=== PATIENT | male | born 1955 | race Caucasian/White ===

== ENCOUNTER → 2017-01-12 | Outpatient (CLI) | payer BC, OTHER ==
--- NOTE | 2017-01-12 08:08 | CT ---
EXAMINATION TYPE: CT chest w con DATE OF EXAM: 01/12/2017 7:54 AM COMPARISON: NONE HISTORY: COPD CT DLP: 700.9 mGycm Automated exposure control for dose reduction was used. CONTRAST: CT scan of the chest is performed with IV Contrast, patient injected with 100 ml mL of Omnipaque 300. FINDINGS: LUNGS: Mild upper lobe emphysematous changes noted. Hyperinflation compatible with COPD. Calcified pl eural plaque right lung base. No evidence for mass or pulmonary nodule. No evidence for pleural effus ion. Mild parenchymal scarring right upper lobe posteriorly. MEDIASTINUM: There are no greater than 1 cm hilar or mediastinal lymph nodes. No pericardial effusi on is seen. Thoracic aorta is of normal caliber. The heart is not enlarged. UPPER ABDOMEN: No significant abnormality appreciated. OTHER: There is evidence of fatty hepatic infiltration. IMPRESSION: 1. COPD with mild upper lobe emphysematous change. 2. 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
== END | disposition home or self-care (01) ==
LOC: RADCTMAIN 07:20
PROVIDERS: ATTEND Internal Medicine Sleep Medicine
DX: J44.9 Chronic obstructive pulmonary disease, unspecified (principal); J98.4 Other disorders of lung
CPT/HCPCS: 71260; Q9967

== ENCOUNTER 2018-02-09 10:59 | Emergency (ER) | payer BC, OTHER ==
[2018-02-09] MEDS ORDERED: methylPREDNISolone SOD SUCCI 125 MG/2 ML VIAL IV STA (11:31)
[2018-02-09] MEDS ORDERED: LEVOFLOXACIN 750MG-D5W PMX 750 MG in DEXTROSE/WATER 1 150ML.BAG IVPB STA (11:31)
[2018-02-09] MEDS ORDERED: ALBUTEROL NEBULIZED 2.5 MG/3 ML INHALATION STA (11:31)
[2018-02-09] MEDS ORDERED: IPRATROPIUM 0.5 MG/2.5 ML NEBU INHALATION STA (11:31)
--- NOTE | 2018-02-09 11:52 | ED ---
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 He denies any chest pain no pleuritic chest pain no headache no signs of any meningitis no abdominal pain no frequency urgency dysuria no symptoms of TIA or CVA - Related Data Home Medications Medication Instructions Recorded Confirmed Budesonide-Formot 160-4.5 Mcg 2 puff INHALATION BID 04/06/17 02/09/18 [Symbicort 160-4.5 Mcg Inhaler] Montelukast [Singulair] 10 mg PO DAILY 04/06/17 02/09/18 Albuterol Inhaler [Ventolin Hfa 2 puff INHALATION DIRECTED 04/20/17 02/09/18 Inhaler] Allopurinol [Zyloprim] 100 mg PO BID 04/20/17 02/09/18 Hydrochlorothiazide 50 mg PO BID 04/20/17 02/09/18 Ipratropium-Albuterol Nebulize 2 puff INHALATION QID 04/20/17 02/09/18 [Duoneb 0.5 mg-3 mg/3 ml Soln] Potassium Chloride [Klor-Con 10] 10 meq PO DAILY 04/20/17 02/09/18 Tiotropium [place] [Spiriva] 18 mcg INHALATION DIRECTED 04/20/17 02/09/18 Omalizumab [Xolair] 300 mg SQ DIRECTED 07/13/17 02/09/18 Previous Rx's Medication Instructions Recorded Levofloxacin [Levaquin] 750 mg PO DAILY #5 tab 02/09/18 Potassium Chloride [K-Tab ER] 10 meq PO DAILY #10 tablet.er 02/09/18 Allergies Allergy/AdvReac Type Severity Reaction Status Date / Time No Known Allergies Allergy Verified 02/09/18 11:10 Review of Systems ROS Statement: Those systems with pertinent positive or pertinent negative responses have been documented in the HPI. ROS Other: All systems not noted in ROS Statement are negative. Past Medical History Past Medical History: Asthma, COPD, Hypertension Additional Past Medical History / Comment(s): GOUT. History of Any Multi-Drug Resistant Organisms: None Reported Past Surgical History: No Surgical Hx Reported Past Anesthesia/Blood Transfusion Reactions: Unable to Obtain Past Psychological History: No Psychological Hx Reported Smoking Status: Former smoker Past Alcohol Use History: Occasional Past Drug Use History: None Reported General Exam - General Exam Comments Initial Comments: General: The patient is awake and alert, in mild distress, and does not appear acutely ill. Skin: Skin is warm and dry and no rashes or lesions are noted. Eye: Pupils are equal, round and reactive to light, extra-ocular movements are intact; there is normal conjunctiva bilaterally. Ears, nose, mouth and throat: There are moist mucous membranes and no oral lesions. Neck: The neck is supple, there is no tenderness or JVD. Cardiovascular: There is a regular rate and rhythm. No murmur, rub or gallop is appreciated. Respiratory: To auscultation bilateral, crease breath sounds bilateral typical COPD Gastrointestinal: Soft, non-distended, non-tender abdomen without masses or organomegaly noted. There is no rebound or guarding present. Bowel sounds are unremarkable. Back: There is no tenderness to palpation in the midline. There is no obvious deformity. Musculoskeletal: Normal ROM, no tenderness, There is no pedal edema. There is no calf tenderness or swelling. No cords were appreciated. Neurological: CN II-XII intact, Cranial nerves III through XII are intact. There are no obvious motor or sensory deficits. Coordination appears grossly intact. Speech is normal. Psychiatric: Cooperative, appropriate mood & affect, normal judgment. Limitations: no limitations Course Vital Signs 02/09/18 02/09/18 02/09/18 11:05 11:44 11:54 Temperature 100.1 F H Pulse Rate 99 90 92 Respiratory 20 Rate Blood Pressure 127/68 O2 Sat by Pulse 97 Oximetry Patient's labs are reviewed, flu studies are normal potassium is bit low 3.2 chest x-rays consistent with a COPD white count is normal and creatinine is 1.3 to had no previous creatinine to compare with he does have a mild renal insufficiency and plan to refer him to nephrology to keep an eye on his kidney functions and I will put him on now Levaquin 750 mg 1 tablet daily for next 7 days he was in a doxycycline and Bactrim and will discontinue that for cultures are pending x-ray of the foot ruled out any osteomyelitis he also will go home on some potassium chloride 10 mEq by mouth daily for next couple of weeks and he would need to check his potassium diagnosis can be bronchitis due to exacerbation of COPD with some fever and chills Medical Decision Making - Lab Data Result diagrams: 02/09/18 11:54 02/09/18 11:54 Lab Results 02/09/18 02/09/18 02/09/18 Range/Units 11:54 11:54 11:54 WBC 9.7 (3.8-10.6) k/uL RBC 5.03 (4.30-5.90) m/uL Hgb 16.0 (13.0-17.5) gm/dL Hct 45.9 (39.0-53.0) % MCV 91.3 (80.0-100.0) fL MCH 31.8 (25.0-35.0) pg MCHC 34.8 (31.0-37.0) g/dL RDW 12.9 (11.5-15.5) % Plt Count 130 L (150-450) k/uL Neutrophils % 83 % Lymphocytes % 6 % Monocytes % 6 % Eosinophils % 4 % Basophils % 0 % Neutrophils # 8.0 H (1.3-7.7) k/uL Lymphocytes # 0.5 L (1.0-4.8) k/uL Monocytes # 0.6 (0-1.0) k/uL Eosinophils # 0.4 (0-0.7) k/uL Basophils # 0.0 (0-0.2) k/uL PT 11.4 (9.0-12.0) sec INR 1.2 H (<1.2) APTT 23.8 (22.0-30.0) sec Sodium 134 L (137-145) mmol/L Potassium 3.2 L (3.5-5.1) mmol/L Chloride 96 L (98-107) mmol/L Carbon Dioxide 28 (22-30) mmol/L Anion Gap 10 mmol/L BUN 24 H (9-20) mg/dL Creatinine 1.32 H (0.66-1.25) mg/dL Est GFR (CKD-EPI)AfAm 66 (>60 ml/min/1.73 sqM) Est GFR (CKD-EPI)NonAf 57 (>60 ml/min/1.73 sqM) Glucose 110 H (74-99) mg/dL Calcium 8.7 (8.4-10.2) mg/dL Total Bilirubin 0.7 (0.2-1.3) mg/dL AST 89 H (17-59) U/L ALT 102 H (21-72) U/L Alkaline Phosphatase 69 (38-126) U/L Total Protein 6.0 L (6.3-8.2) g/dL Albumin 3.6 (3.5-5.0) g/dL Influenza Type A RNA (Not Detectd) Influenza Type B (PCR) (Not Detectd) 02/09/18 Range/Units 11:54 WBC (3.8-10.6) k/uL RBC (4.30-5.90) m/uL Hgb (13.0-17.5) gm/dL Hct (39.0-53.0) % MCV (80.0-100.0) fL MCH (25.0-35.0) pg MCHC (31.0-37.0) g/dL RDW (11.5-15.5) % Plt Count (150-450) k/uL Neutrophils % % Lymphocytes % % Monocytes % % Eosinophils % % Basophils % % Neutrophils # (1.3-7.7) k/uL Lymphocytes # (1.0-4.8) k/uL Monocytes # (0-1.0) k/uL Eosinophils # (0-0.7) k/uL Basophils # (0-0.2) k/uL PT (9.0-12.0) sec INR (<1.2) APTT (22.0-30.0) sec Sodium (137-145) mmol/L Potassium (3.5-5.1) mmol/L Chloride (98-107) mmol/L Carbon Dioxide (22-30) mmol/L Anion Gap mmol/L BUN (9-20) mg/dL Creatinine (0.66-1.25) mg/dL Est GFR (CKD-EPI)AfAm (>60 ml/min/1.73 sqM) Est GFR (CKD-EPI)NonAf (>60 ml/min/1.73 sqM) Glucose (74-99) mg/dL Calcium (8.4-10.2) mg/dL Total Bilirubin (0.2-1.3) mg/dL AST (17-59) U/L ALT (21-72) U/L Alkaline Phosphatase (38-126) U/L Total Protein (6.3-8.2) g/dL Albumin (3.5-5.0) g/dL Influenza Type A RNA Not Detected (Not Detectd) Influenza Type B (PCR) Not Detected (Not Detectd) Disposition Clinical Impression: Acute exacerbation of COPD with asthma, Chronic foot ulcer, Renal insufficiency Disposition: HOME SELF-CARE Condition: Good Instructions: Upper Respiratory Infection (ED) Prescriptions: Levofloxacin [Levaquin] 750 mg PO DAILY #5 tab Potassium Chloride [K-Tab ER] 10 meq PO DAILY #10 tablet.er Is patient prescribed a controlled substance at d/c from ED?: No If prescribed controlled substance>3 days was MAPS reviewed?: No When asked, does pt state using other controlled substances?: No Referrals: Darrius Elizabeth MD [Primary Care Provider] - 1-2 days Liyah Garcia MD [STAFF PHYSICIAN] - 1-2 days Dawn Chan MD [STAFF PHYSICIAN] - 1-2 days
[2018-02-09 12:06] LABS: Basophils % (A) 0 %; Eosinophils # (A) 0.4 k/uL (0-0.7); Eosinophils % (A) 4 %; HCT 45.9 % (39.0-53.0); Lymphocytes # (A) 0.5 k/uL (1.0-4.8); Lymphocytes % (A) 6 %; MCH 31.8 pg (25.0-35.0); MCHC 34.8 g/dL (31.0-37.0); MCV 91.3 fL (80.0-100.0); Mean Platelet Volume 7.5; Monocytes # (A) 0.6 k/uL (0-1.0); Monocytes % (A) 6 %; Neutrophils % (A) 83 %; Platelet Count 130 k/uL (150-450); RBC 5.03 m/uL (4.30-5.90); RDW 12.9 % (11.5-15.5); WBC 9.7 k/uL (3.8-10.6)
[2018-02-09 12:16] LABS: INR 1.2 (<1.2); Partial Thromboplastin Time 23.8 sec (22.0-30.0); Prothrombin Time 11.4 sec (9.0-12.0)
[2018-02-09 12:18] LABS: Albumin 3.6 g/dL (3.5-5.0); Calcium 8.7 mg/dL (8.4-10.2); Potassium 3.2 mmol/L (3.5-5.1); Total Bilirubin 0.7 mg/dL (0.2-1.3)
--- NOTE | 2018-02-09 12:20 | XR ---
EXAMINATION TYPE: XR chest 2V DATE OF EXAM: 02/09/2018 HISTORY: difficulty breathing. REFERENCE: NONE. FINDINGS: Lung volumes are prominent. The lungs are clear. Pleural spaces are clear. The heart is not enlarged. IMPRESSION: COPD.
--- NOTE | 2018-02-09 12:20 | XR ---
EXAMINATION TYPE: XR foot complete LT , 3 VIEWS DATE OF EXAM ORDERED: 02/09/2018 HISTORY: Enlarging first MTP joint. COMPARISON: None. FINDINGS: There are degenerative changes within the first MTP joint. 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 No acute fracture or dislocation is seen. No bony dest ructive lesion is seen. There is a plantar calcaneal spur. IMPRESSION: 1. NO ACUTE OSSEOUS LESION. 2. DEGENERATIVE CHANGE.
[2018-02-09 12:40] LABS: Troponin I 0.023 ng/mL (0.000-0.034)
[2018-02-09 13:17] VITALS: BP 115/58; PULSE 85; RESP 16; TEMP 99
== END 2018-02-09 13:16 | disposition home or self-care (01) ==
LOC: EC 10:59
DX: J44.1 Chronic obstructive pulmonary disease with (acute) exacerbation (principal); J45.901 Unspecified asthma with (acute) exacerbation; L97.509 Non-pressure chronic ulcer of other part of unspecified foot with unspecified severity; N28.9 Disorder of kidney and ureter, unspecified; I10 Essential (primary) hypertension; M10.9 Gout, unspecified; Z87.891 Personal history of nicotine dependence; Z79.51 Long term (current) use of inhaled steroids; Z79.899 Other long term (current) drug therapy
CPT/HCPCS: 99284; 96365; 96375; 36415; 94640; 93005; 83880; 80053; 82550; 82553; 84484; 85025; 85610; 85730; 87040; 87070; 87205; 87502; 73630; 71046; J2930; J1956

== ENCOUNTER → 2019-07-24 | Outpatient (CLI) | payer BC, OTHER ==
--- NOTE | 2019-07-24 16:40 | CT ---
EXAMINATION TYPE: CT urogram wo/w con DATE OF EXAM: 07/24/2019 COMPARISON: None INDICATION: Positive UA for blood/microscopic hematuria. Pt not c/o any other issues DLP: 4035 mGycm, Automated exposure control for dose reduction was used. CONTRAST: 100 mL of Isovue 300. Study performed TECHNIQUE: Axial images were obtained from above the diaphragm to the pubic rami in the axial plane a t 5 mm thick sections. Reconstructed images are reviewed on the computer in the coronal plane. FINDINGS: Limited CT sections are obtained the lung bases. The lung bases are clear. There is some calcificat ion along the right diaphragm. CT ABDOMEN: Liver: There is moderate fatty infiltration of the liver. Spleen: Normal Pancreas: Normal Adrenal glands: The adrenal glands are normal. Gallbladder: Normal Kidneys: No masses are evident. No hydronephrosis is present. No cysts are present. Delayed images were obtained through the kidneys, which remain unremarkable. Three-D reconstructed images are performed by the technologist on a separate computer. Medial calyces infundibula and renal pelves appear normal. Ureters follow a normal caliber course and contour to th e urinary bladder. Urinary bladder appears unremarkable Aorta: Vascular calcification is within the aorta. Inferior vena cava: Normal. CT PELVIS: Loops of bowel within the abdomen and pelvis are normal. Studies performed without oral contrast limiting bowel evaluation. Appendix: Normal as visualized. Urinary bladder: Normal. Genitourinary structures: Prostate is unremarkable. Osseous structures: No suspicious lytic or sclerotic lesions. IMPRESSIONS: 1. Normal CT urogram.
== END ==
LOC: RADCTMAIN 14:20
PROVIDERS: ATTEND Urology
DX: R31.1 Benign essential microscopic hematuria (principal)
CPT/HCPCS: 74178; 74400; Q9967

== ENCOUNTER → 2019-11-01 | Outpatient (CLI) | payer MEDICARE, BC, OTHER ==
--- NOTE | 2019-11-03 10:54 | PE ---
EXAMINATION TYPE: PET CT fusion skull to thigh DATE OF EXAM: 11/01/2019 COMPARISON: CT urogram July 24, 2019. CT chest January 12, 2017. Outside CTA coronary arteries repor t July 19, 2019 HISTORY: Solitary pulmonary nodule TECHNIQUE: Following the intravenous administration of 10.15 mCi of F-18 FDG, whole body images are performed from the skull base to the midthigh. Images are reviewed on the computer in the coronal, a xial, and sagittal planes. Reconstructed rotating images are created on independent workstation and reviewed on the computer. A localization and attenuation correction CT is performed in conjunction with the PET scan. SCAN: Initial Scan FINDINGS: SKULL BASE AND NECK: No areas of suspicious hypermetabolic uptake. CHEST, MEDIASTINUM, AND HILAR REGION: Background mild to moderate underlying emphysematous change. Re demonstration of calcified pleural plaque right lung base. There is persistent linear scarring latera lly in the left lung base perhaps slightly thickened but not significantly changed from 2017 CT. No s uspicious hypermetabolic uptake in the thorax with particular attention to the left lung base at area of concern on outside report. ABDOMEN AND PELVIS: No areas of suspicious hypermetabolic uptake. OSSEOUS STRUCTURES: No areas of suspicious hypermetabolic uptake. Mild uptake near the level of left greater trochanter is presumed product of a trochanteric bursitis. Old avulsion type fracture suspect ed at this level. OTHER CT: Trace pericardial effusion anterior-inferior aspect. Prominent symmetric bilateral gynecoma stia. Marked fatty infiltration of liver redemonstrated. Bladder poorly distended with abnormal mild to mod erate wall thickening anteriorly measuring up to 14 mm in thickness axial image 217, correlate clinic ally to rule out cystitis. Prostate gland appears normal in size. The bladder appeared within normal limits on the recent CT urogram. Some facet arthropathy lower lumbar spine. IMPRESSION: No suspicious hypermetabolic uptake with particular attention to left lung base at area o f concern on recent CTA coronary study.
== END | disposition home or self-care (01) ==
LOC: RADPETMAIN 07:26
PROVIDERS: ATTEND Internal Medicine Sleep Medicine
DX: R91.1 Solitary pulmonary nodule (principal)
CPT/HCPCS: 78815; A9552

== ENCOUNTER 2020-04-16 09:07 | Day surgery (SDC) | payer MEDICARE, OTHER ==
[2020-04-13 16:05] VITALS: BMI 37.4
[~2020-04-16 09:07] MED LIST: LIDOCAINE 1% (10MG/ML) FOR IV START INTRADERMA PRN
[2020-04-16 09:49] VITALS: RESP 20; TEMP 99.3
[2020-04-16 09:57] LABS: Glucose,Whole Blood 103 mg/dL (75-99)
[2020-04-16] MEDS: LACTATED RINGERS 1,000 ML IV SCH ×2 (09:57→10:00)
[2020-04-16] MEDS ORDERED: PROPOFOL 10 MG/ML 20 ML VIAL IV ONE (10:05)
[2020-04-16] MEDS ORDERED: LIDOCAINE 1% INJ 10MG/ML (20 ML MDV) ONE (10:05)
--- NOTE | 2020-04-16 10:21 | P.PCN ---
Date of Procedure: 04/16/20 Procedure(s) Performed: BRIEF HISTORY: Patient is a 64-year-old pleasant male scheduled for an elective colonoscopy as a part of screening for colorectal neoplasia PROCEDURE PERFORMED: Colonoscopy with snare polypectomy. PREOPERATIVE DIAGNOSIS: Screening for colon cancer. IV sedation per Anesthesia. PROCEDURE: After informed consent was obtained, the patient, was brought into the endoscopy unit. IV sedation was administered by Anesthesia under continuous monitoring. Digital rectal examination was normal. Initially the Olympus CF-160 flexible video colonoscope was then inserted in the rectum, gradually advanced into the cecum without any difficulty. Careful examination was performed as the scope was gradually being withdrawn. Ileocecal valve and the appendiceal orifice were visualized and appeared normal. Prep was excellent. Mucosa of the cecum had a 5 mm sessile polyp removed by snare polypectomy. Rest of the, ascending colon, transverse colon, appeared normal. In the descending colon there was a 4 mm, 5 mm and 7 mm polyp all of which were removed by snare polypectomy. In the proximal rectum there was a 5 mm sessile polyp removed by snare polypectomy. Rest of the descending colon, sigmoid colon, and rectum appeared normal. Retroflexion was performed in the rectum and no lesions were seen. The patient tolerated the procedure well. IMPRESSION: 5 mm cecal polyp status post polypectomy 4 mm, 7 mm and 5 mm descending colon polyp status post polypectomy 5 mm sessile rectal polyp status post snare polyp. RECOMMENDATIONS: Findings of this examination were discussed with the patient as well as his family. He was advised to follow with the biopsy results. If the biopsy shows an adenoma he can have a repeat colonoscopy in 3 years.
[2020-04-16 10:58] VITALS: BP 119/61; PULSE 77
== END 2020-04-16 11:14 | disposition home or self-care (01) ==
LOC: ORWHC2ENDO 09:07
PROVIDERS: ATTEND Internal Medicine Gastroenterology
DX: Z12.11 Encounter for screening for malignant neoplasm of colon (principal); D12.4 Benign neoplasm of descending colon; D12.0 Benign neoplasm of cecum; K62.1 Rectal polyp; Z79.899 Other long term (current) drug therapy; I10 Essential (primary) hypertension; J44.9 Chronic obstructive pulmonary disease, unspecified; G47.33 Obstructive sleep apnea (adult) (pediatric); Z99.89 Dependence on other enabling machines and devices; M10.9 Gout, unspecified; Z79.51 Long term (current) use of inhaled steroids
CPT/HCPCS: 88305; 45385; J2001; J2704

== ENCOUNTER 2022-02-05 12:16 | Emergency (ER) | payer MEDICARE, OTHER ==
[2022-02-05 12:20] VITALS: TEMP 99.2
[2022-02-05] MEDS ORDERED: IPRATROPIUM-ALBUTEROL 3 ML NEB INHALATION STA ×2 (13:12→14:40)
[2022-02-05] MEDS ORDERED: methylPREDNISolone SOD SUCCI 125 MG/2 ML VIAL IV STA (13:12)
[2022-02-05 13:40] VITALS: RESP 18
[2022-02-05 13:44] LABS: Albumin 3.7 g/dL (3.5-5.0); Calcium 8.5 mg/dL (8.4-10.2); Potassium 4.3 mmol/L (3.5-5.1); Total Bilirubin 1.1 mg/dL (0.2-1.3); Total Protein 6.6 g/dL (6.3-8.2)
[2022-02-05 13:52] LABS: Basophils # (A) 0.1 k/uL (0-0.2); Basophils % (A) 0 %; Eosinophils # (A) 0.1 k/uL (0-0.7); Eosinophils % (A) 1 %; HCT 44.7 % (39.0-53.0); HGB 14.9 gm/dL (13.0-17.5); Lymphocytes # (A) 0.3 k/uL (1.0-4.8); Lymphocytes % (A) 2 %; MCH 32.9 pg (25.0-35.0); MCHC 33.3 g/dL (31.0-37.0); MCV 98.7 fL (80.0-100.0); Mean Platelet Volume 7.5; Monocytes # (A) 0.9 k/uL (0-1.0); Monocytes % (A) 7 %; Neutrophils # (A) 10.9 k/uL (1.3-7.7); Neutrophils % (A) 89 %; Platelet Count 187 k/uL (150-450); RBC 4.53 m/uL (4.30-5.90); RDW 13.9 % (11.5-15.5); WBC 12.2 k/uL (3.8-10.6)
[2022-02-05 14:14] LABS: Partial Thromboplastin Time 24.4 sec (22.0-30.0); Prothrombin Time 11.2 sec (9.0-12.0)
--- NOTE | 2022-02-05 14:39 | XR ---
EXAMINATION TYPE: XR chest 2V DATE OF EXAM: 02/05/2022 COMPARISON: 12/19/2021 HISTORY: Short of breath TECHNIQUE: 2 views FINDINGS: Heart is normal. Lungs are clear. Diaphragm is normal. Bony thorax is intact. IMPRESSION: Normal chest. No change.
[2022-02-05] MEDS ORDERED: ALBUTEROL HFA INHALER INHALATION STA (14:46)
--- NOTE | 2022-02-05 14:51 | ED ---
General Adult HPI - General Chief complaint: Shortness of Breath Stated complaint: Covid+ Time Seen by Provider: 02/05/22 13:00 Source: patient, RN notes reviewed, old records reviewed Mode of arrival: ambulatory Limitations: no limitations - History of Present Illness Initial comments: She is a 66-year-old male with past medical history remarkable for chronic hypoxic respiratory failure on 3-4 L nasal cannula at home, COPD, hypertension, sleep apnea, asthma who presents emergency Department complaining of Covid testing. States his had Covid last week. Began having symptoms 3 or 4 days ago. There is some primarily as worsening shortness of breath which got worse yesterday and today. Intensity is his home breathing treatments with minimal success. Presents today for further evaluation. Patient does have a history of heart failure but denies any worsening lower extremity edema. No history of blood clots. Not on blood thinners. Denies nausea, vomiting, abdominal pain. Denies weakness, numbness, headaches. Patient was vaccinated for COVID-19. Received a flu vaccine as well. Took a home Covid test was positive. - Related Data Home Medications Medication Instructions Recorded Confirmed Budesonide-Formot 160-4.5 Mcg 2 puff INHALATION BID 04/06/17 04/16/20 [Symbicort 160-4.5 Mcg Inhaler] Montelukast [Singulair] 10 mg PO DAILY 04/06/17 04/16/20 Albuterol Inhaler (Mhu) [Ventolin 2 puff INHALATION DIRECTED PRN 04/20/17 04/16/20 Hfa Inhaler] Potassium Chloride [Klor-Con 10 ER] 10 meq PO HS 04/20/17 04/16/20 Tiotropium Funk [Spiriva] 18 mcg INHALATION DAILY 04/20/17 04/16/20 allopurinoL [Zyloprim] 200 mg PO DAILY 04/20/17 04/16/20 Potassium Chloride [K-Tab ER] 20 meq PO QAM 02/15/18 04/16/20 Calcium Carbonate [Calcium] 1 dose PO DAILY 04/13/20 04/16/20 Furosemide [Lasix] 20 mg PO DAILY 04/13/20 04/16/20 Ipratropium-Albuterol Nebulize 1 neb INHALATION QID 04/13/20 04/16/20 [Duoneb 0.5 mg-3 mg/3 ml Soln] Spironolactone [Aldactone] 25 mg PO DAILY 04/13/20 04/16/20 guaiFENesin [Mucinex] 1,200 mg PO DAILY 04/13/20 04/16/20 predniSONE 5 mg PO DAILY 04/13/20 04/16/20 Previous Rx's Medication Instructions Recorded Dexamethasone [Decadron] 6 mg PO DAILY 5 Days #5 tablet 02/05/22 Allergies Allergy/AdvReac Type Severity Reaction Status Date / Time sulfamethoxazole Allergy Rash/Hives Verified 02/05/22 12:21 [From Bactrim] trimethoprim [From Bactrim] Allergy Rash/Hives Verified 02/05/22 12:21 Review of Systems ROS Statement: Those systems with pertinent positive or pertinent negative responses have been documented in the HPI. Review of Systems: CONST: Denies fever EYES: Denies blurry vision ENT: Endorses nasal congestion C/V: Denies Chest pain RESP: Endorses shortness of breath, cough, wheezing GI: Denies abdominal pain : Denies dysuria SKIN: Denies rash. MSK: Denies joint pain. NEURO: Denies headache ROS Other: All systems not noted in ROS Statement are negative. Past Medical History Past Medical History: Asthma, COPD, Hypertension, Sleep Apnea/CPAP/BIPAP Additional Past Medical History / Comment(s): hx gout, c-pap machine with oxygen at 2 liters at night., thin skin and bruises easily. History of Any Multi-Drug Resistant Organisms: None Reported Past Surgical History: No Surgical Hx Reported Additional Past Surgical History / Comment(s): colonoscopy Past Anesthesia/Blood Transfusion Reactions: No Reported Reaction Additional Past Anesthesia/Blood Transfusion Reaction / Comment(s): patient concerned about anesthesia due to copd Past Psychological History: No Psychological Hx Reported Smoking Status: Former smoker Past Alcohol Use History: Daily Past Drug Use History: None Reported - Past Family History Mother Family Medical History: No Reported History General Exam - General Exam Comments Initial Comments: General: Appears in no acute distress. HEAD: Normal with no signs of head trauma. EYES: PERRLA, EOMI, conjunctiva normal, no discharge. ENT: Hearing grossly intact, normal oropharynx. RESPIRATORY: Bilateral end expiratory wheezing. No real increased work of breathing. On home 3 L nasal cannula and saturating between 94 and 96%. C/V: Mildly tachycardic. Mild peripheral edema. S1 and S2 auscultated. Per ipheral pulses 2+ intact throughout. ABD: Abd is soft, nontender, nondistended EXT: Normal range of motion, no obvious deformity SKIN: No rashes or lesions observed on exposed skin. NEURO: Alert and oriented 4. Limitations: no limitations Course Vital Signs 02/05/22 02/05/22 02/05/22 12:17 12:59 13:37 Temperature 99.2 F Pulse Rate 109 H 91 Respiratory 24 22 18 Rate Blood Pressure 159/76 O2 Sat by Pulse 94 L Oximetry 02/05/22 13:45 Temperature Pulse Rate 90 Respiratory 18 Rate Blood Pressure O2 Sat by Pulse Oximetry Medical Decision Making - Medical Decision Making Based on patient's presentation and physical exam, I'm concerned for COVID-19 infection. Cannot rule out other etiology for his current symptoms. Appears to be having a mild COPD exacerbation as well. He is not requiring extra oxyg enation, and is using his normal home levels. However we will obtain a cardiac workup in addition to viral swabs, chest x-ray, EKG. He was in agreement this plan. He will be given IV steroids as well as breathing treatments. studies were remarkable for a mild leukocytosis of 12.2. Patient's troponin is undetected. BNP is 147 and normal. Creatinine is chronically elevated and at baseline at 1.33. Patient is Covid positive. Mild hyponatremia of 132. Chest x-ray reveals no change, however there is bilateral patchiness which is chronic and appears compared to prior chest x-ray. On reevaluation, patient is feeling improved. Wheezing is improved. I did recommend that he receive medical and like therapy and he consented. I will provide him with home steroids as well, Decadron 6 mg daily for the next 5 days. He can continue using his home albuterol and inhalers. He already has a pulse ox at home. We discussed quarantine. He was in agreement this plan. Patient tolerated therapy well. Patient's vital signs remained within normal limits stable throughout his stay. I will provide the patient with a prescription for Decadron 6 mg daily for 5 days. I instructed the patient to follow up with their PCP in the next 3 days. I explained that the patient should return to the emergency department if they experience any worsening symptoms. Strict return precautions were discussed with the patient. The patient expressed understanding of these instructions. I an swered all questions that the patient had. The patient was discharged home in good condition with their prescriptions and follow up information. - Lab Data Result diagrams: 02/05/22 12:41 02/05/22 12:41 Lab Results 02/05/22 02/05/22 02/05/22 Range/Units 12:41 12:41 12:41 WBC 12.2 H (3.8-10.6) k/uL RBC 4.53 (4.30-5.90) m/uL Hgb 14.9 (13.0-17.5) gm/dL Hct 44.7 (39.0-53.0) % MCV 98.7 (80.0-100.0) fL MCH 32.9 (25.0-35.0) pg MCHC 33.3 (31.0-37.0) g/dL RDW 13.9 (11.5-15.5) % Plt Count 187 (150-450) k/uL MPV 7.5 Neutrophils % 89 % Lymphocytes % 2 % Monocytes % 7 % Eosinophils % 1 % Basophils % 0 % Neutrophils # 10.9 H (1.3-7.7) k/uL Lymphocytes # 0.3 L (1.0-4.8) k/uL Monocytes # 0.9 (0-1.0) k/uL Eosinophils # 0.1 (0-0.7) k/uL Basophils # 0.1 (0-0.2) k/uL PT (9.0-12.0) sec INR (<1.2) APTT (22.0-30.0) sec Sodium 132 L (137-145) mmol/L Potassium 4.3 (3.5-5.1) mmol/L Chloride 101 (98-107) mmol/L Carbon Dioxide 25 (22-30) mmol/L Anion Gap 6 mmol/L BUN 18 (9-20) mg/dL Creatinine 1.33 H (0.66-1.25) mg/dL Est GFR (CKD-EPI)AfAm 64 (>60 ml/min/1.73 sqM) Est GFR (CKD-EPI)NonAf 55 (>60 ml/min/1.73 sqM) Glucose 99 (74-99) mg/dL Calcium 8.5 (8.4-10.2) mg/dL Total Bilirubin 1.1 (0.2-1.3) mg/dL AST 51 (17-59) U/L ALT 31 (4-49) U/L Alkaline Phosphatase 54 (38-126) U/L Troponin I <0.012 (0.000-0.034) ng/mL NT-Pro-B Natriuret Pep pg/mL Total Protein 6.6 (6.3-8.2) g/dL Albumin 3.7 (3.5-5.0) g/dL Coronavirus (PCR) (Not Detectd) Influenza Type A RNA (Not Detectd) Influenza Type B (PCR) (Not Detectd) 02/05/22 02/05/22 02/05/22 Range/Units 12:41 13:18 13:18 WBC (3.8-10.6) k/uL RBC (4.30-5.90) m/uL Hgb (13.0-17.5) gm/dL Hct (39.0-53.0) % MCV (80.0-100.0) fL MCH (25.0-35.0) pg MCHC (31.0-37.0) g/dL RDW (11.5-15.5) % Plt Count (150-450) k/uL MPV Neutrophils % % Lymphocytes % % Monocytes % % Eosinophils % % Basophils % % Neutrophils # (1.3-7.7) k/uL Lymphocytes # (1.0-4.8) k/uL Monocytes # (0-1.0) k/uL Eosinophils # (0-0.7) k/uL Basophils # (0-0.2) k/uL PT (9.0-12.0) sec INR (<1.2) APTT (22.0-30.0) sec Sodium (137-145) mmol/L Potassium (3.5-5.1) mmol/L Chloride (98-107) mmol/L Carbon Dioxide (22-30) mmol/L Anion Gap mmol/L BUN (9-20) mg/dL Creatinine (0.66-1.25) mg/dL Est GFR (CKD-EPI)AfAm (>60 ml/min/1.73 sqM) Est GFR (CKD-EPI)NonAf (>60 ml/min/1.73 sqM) Glucose (74-99) mg/dL Calcium (8.4-10.2) mg/dL Total Bilirubin (0.2-1.3) mg/dL AST (17-59) U/L ALT (4-49) U/L Alkaline Phosphatase (38-126) U/L Troponin I (0.000-0.034) ng/mL NT-Pro-B Natriuret Pep 147 pg/mL Total Protein (6.3-8.2) g/dL Albumin (3.5-5.0) g/dL Coronavirus (PCR) Detected A (Not Detectd) Influenza Type A RNA Not Detected (Not Detectd) Influenza Type B (PCR) Not Detected (Not Detectd) 02/05/22 Range/Units 13:51 WBC (3.8-10.6) k/uL RBC (4.30-5.90) m/uL Hgb (13.0-17.5) gm/dL Hct (39.0-53.0) % MCV (80.0-100.0) fL MCH (25.0-35.0) pg MCHC (31.0-37.0) g/dL RDW (11.5-15.5) % Plt Count (150-450) k/uL MPV Neutrophils % % Lymphocytes % % Monocytes % % Eosinophils % % Basophils % % Neutrophils # (1.3-7.7) k/uL Lymphocytes # (1.0-4.8) k/uL Monocytes # (0-1.0) k/uL Eosinophils # (0-0.7) k/uL Basophils # (0-0.2) k/uL PT 11.2 (9.0-12.0) sec INR 1.0 (<1.2) APTT 24.4 (22.0-30.0) sec Sodium (137-145) mmol/L Potassium (3.5-5.1) mmol/L Chloride (98-107) mmol/L Carbon Dioxide (22-30) mmol/L Anion Gap mmol/L BUN (9-20) mg/dL Creatinine (0.66-1.25) mg/dL Est GFR (CKD-EPI)AfAm (>60 ml/min/1.73 sqM) Est GFR (CKD-EPI)NonAf (>60 ml/min/1.73 sqM) Glucose (74-99) mg/dL Calcium (8.4-10.2) mg/dL Total Bilirubin (0.2-1.3) mg/dL AST (17-59) U/L ALT (4-49) U/L Alkaline Phosphatase (38-126) U/L Troponin I (0.000-0.034) ng/mL NT-Pro-B Natriuret Pep pg/mL Total Protein (6.3-8.2) g/dL Albumin (3.5-5.0) g/dL Coronavirus (PCR) (Not Detectd) Influenza Type A RNA (Not Detectd) Influenza Type B (PCR) (Not Detectd) - EKG Data -: EKG Interpreted by Me EKG Comments: 12-lead Electrocardiogram Interpretation Note EKG was reviewed and interpreted by myself. 12-lead ECG performed at 1231 is interpreted by me as revealing normal sinus rhythm at a rate of 101 beats per minute. Equality is normal. NV interval 144 ms, QRS duration is 89 ms, QTc is 372 ms.. There were no ST or T wave abnormalities to suggest myocardial ischemia or injury. R wave progression across the precordium was satisfactory. By my interpretation this EKG is non-diagnostic for acute ischemia. Disposition Clinical Impression: COVID-19 virus infection, COPD exacerbation Disposition: HOME SELF-CARE Condition: Good Instructions (If sedation given, give patient instructions): COVID-19 (Coronavirus Disease 2019) (ED) Prescriptions: Dexamethasone [Decadron] 6 mg PO DAILY 5 Days #5 tablet Is patient prescribed a controlled substance at d/c from ED?: No Referrals: Darrius Elizabeth MD [Primary Care Provider] - 1-2 days Time of Disposition: 14:45
[2022-02-05] MEDS ORDERED: BEBTELOVIMAB (EUA) 175 MG/2 ML VIAL IV ONE (15:00)
[2022-02-05 16:06] VITALS: BP 124/65; PULSE 85
== END 2022-02-05 16:36 | disposition home or self-care (01) ==
LOC: EC 12:16
DX: U07.1 COVID-19 (principal); J44.1 Chronic obstructive pulmonary disease with (acute) exacerbation; I11.0 Hypertensive heart disease with heart failure; I50.9 Heart failure, unspecified; M10.9 Gout, unspecified; Z79.51 Long term (current) use of inhaled steroids; Z79.52 Long term (current) use of systemic steroids; Z79.899 Other long term (current) drug therapy; Z87.891 Personal history of nicotine dependence; Z88.1 Allergy status to other antibiotic agents; Z88.2 Allergy status to sulfonamides
CPT/HCPCS: 36415; 94640; 83880; 80053; 84484; 85025; 85610; 85730; 87502; 87635; 71046; 99285; 96374; J2930; Q0222

== ENCOUNTER → 2022-12-13 | Outpatient (CLI) | payer MEDICARE, OTHER ==
--- NOTE | 2022-12-13 11:46 | CT ---
EXAMINATION TYPE: CT chest w con DATE OF EXAM: 12/13/2022 COMPARISON: 01/12/2017 HISTORY: Hemopytsis. CT DLP: 814 mGycm Automated exposure control for dose reduction was used. TECHNIQUE: CT scan of the chest is performed with IV Contrast, patient injected with 70ml mL of Isovue 300. MIP Images are created on CT scanner and reviewed. 3D reconstructed images are created on an independent workstation and reviewed. FINDINGS: LUNGS: Centrilobular mild emphysematous changes noted. Hyperinflation compatible with COPD. Calcified pleural plaque right lung base. No evidence for mass or pulmonary nodule. No evidence for pleural ef fusion. Mild parenchymal scarring right upper lobe posteriorly. Pleural calcifications are seen along the diaphragmatic surface of the right lung stable correlate for his best is related disease. MEDIASTINUM: There are no greater than 1 cm hilar or mediastinal lymph nodes. No pericardial effusi on is seen. Atherosclerotic changes of aorta and calcification in the region of the aortic valve. Ao rta normal caliber. Heart size normal. OTHER: Hypertrophic and degenerative changes of the spine are noted. Scoliotic curvature. There is a hyperdense lesion seen in the dome of the liver measuring 1.6 cm. Low attenuation seen throughout th e liver suggestive of hepatic steatosis. IMPRESSION: 1. COPD with no evidence of pulmonary sizable mass or focal pneumonia. 2. There is a 1.6 cm hepatic dome lesion which is hyperdense could represent a flash hemangioma. Othe r etiologies not excluded. Not seen with certainty on prior exam. Recommend follow-up ultrasound for further evaluation. 3. Pleural-based calcification correlates present best is related disease. 4. Hepatic ptosis
== END | disposition home or self-care (01) ==
LOC: RADCTMAIN 10:18
PROVIDERS: ATTEND Internal Medicine Sleep Medicine
DX: J44.9 Chronic obstructive pulmonary disease, unspecified (principal); K76.89 Other specified diseases of liver; R04.2 Hemoptysis
CPT/HCPCS: 82565; 84520; 71260; 36415; Q9967

== ENCOUNTER → 2023-05-18 | Day surgery (SDC) | payer MEDICARE, OTHER ==
[2023-05-16 11:05] VITALS: BMI 41.2
[~2023-05-18] MED LIST changes: +IPRATROPIUM-ALBUTEROL 3 ML NEB INHALATION STA; +KETAMINE 10 MG/ML 20 ML VIAL ONE; +LACTATED RINGERS 1,000 ML IV SCH; +PROPOFOL 10 MG/ML 20 ML VIAL IV ONE
[2023-05-18 12:21] LABS: Glucose,Whole Blood 113 mg/dL (70-110)
--- NOTE | 2023-05-18 13:26 | P.PCN ---
Date of Procedure: 05/18/23 Procedure(s) Performed: BRIEF HISTORY: Patient is a 67-year-old pleasant white male scheduled for an elective colonoscopy as a part of prior history of colon polyps. Last colonoscopy was 3 years ago. PROCEDURE PERFORMED: Colonoscopy with snare polypectomy. PREOPERATIVE DIAGNOSIS: History of colon polyps. IV sedation per Anesthesia. PROCEDURE: After informed consent was obtained, the patient, was brought into the endoscopy unit. IV sedation was administered by Anesthesia under continuous monitoring. Digital rectal examination was normal. Initially the Olympus CF-160 flexible video colonoscope was then inserted in the rectum, gradually advanced into the cecum without any difficulty. Careful examination was performed as the scope was gradually being withdrawn. Ileocecal valve and the appendiceal orifice were visualized and appeared normal. Prep was excellent. Mucosa of the cecum, appeared normal. In the ascending colon there was a 3 mm polyp that was removed by cold biopsy. Rest of the ascending colon, transverse colon, descending colon, sigmoid colon, and rectum appeared normal. In the rectum there was a 5 mm polyp removed by snare polypectomy. Retroflexion was performed in the rectum and no lesions were seen. The patient tolerated the procedure well. IMPRESSION: 3 mm ascending colon polyp status post cold biopsy 5 mm rectal polyp status post snare polypectomy Rest of the colon appeared normal RECOMMENDATIONS: Findings of this examination were discussed with the patient as well as his family. He was advised to follow with the biopsy results. If the biopsy result he can have a repeat colonoscopy in 5 years.
[2023-05-18 14:32] VITALS: BP 124/75; PULSE 80; RESP 22
== END ==
LOC: ORWHC2ENDO 11:24
PROVIDERS: ATTEND Internal Medicine Gastroenterology
DX: Z12.11 Encounter for screening for malignant neoplasm of colon (principal); D12.2 Benign neoplasm of ascending colon; K62.1 Rectal polyp; I10 Essential (primary) hypertension; J44.9 Chronic obstructive pulmonary disease, unspecified; G47.33 Obstructive sleep apnea (adult) (pediatric); Z88.1 Allergy status to other antibiotic agents; Z79.51 Long term (current) use of inhaled steroids; Z79.899 Other long term (current) drug therapy; Z87.891 Personal history of nicotine dependence; Z86.010 Personal history of colon polyps
CPT/HCPCS: 94640; 88305; 45380; 45385; J2704

== ENCOUNTER 2024-12-24 14:22 | Emergency (ER) | payer MEDICARE, OTHER ==
--- NOTE | 2024-12-24 15:12 | ED ---
SOB HPI - General Source: patient, RN notes reviewed Mode of arrival: ambulatory Limitations: no limitations <Natalie Taylor - Last Filed: 12/24/24 15:11> - General Source: patient, RN notes reviewed, old records reviewed <Tom Magana - Last Filed: 12/24/24 23:52> - General Chief Complaint: Shortness of Breath Stated Complaint: SOB Time Seen by Provider: 12/24/24 15:00 - History of Present Illness Initial Comments: Quick Note: This is a 69-year-old male who presents to the emergency department for shortness of breath. States that he had been short of breath for the last couple of weeks. He followed up with his moulder operator, Dr. Dela Cruz, and completed a course of steroids and antibiotics. He had thought that he was doing better, however over the last couple of days the shortness of breath got worse again. States that he is barely able to walk more than a couple of steps without needing to stop to catch his breath. He is oxygen dependent. (Natalie Taylor) Patient is a 69-year-old male who presents emergency department complaining of cough, congestion, shortness of breath. Has been ongoing for the last month. States was on steroids and antibiotics a few weeks ago from his moulder operator. States he may feel somewhat better but now is back to feeling the same. Has a productive cough of yellowish-green sputum. Also has a history of CHF endorses some mild increased lower extremity swelling but denies any orthopnea or PND. Is chronically on 3 L nasal cannula oxygen at home. Has not required increases. Endorses hypertension as well. Does use CPAP at night. Has no other acute complaints at this time. Is concerned he may have worsening upper respiratory infection which is why he presents for further evaluation at this time. Denies chest pain, nausea, vomiting. Originally seen as a quick note. I evaluated the patient when he was placed in room. (Tom Magana) - Related Data Home Medications Medication Instructions Recorded Confirmed Budesonide-Formot 160-4.5 Mcg 2 puff INHALATION RT-BID 04/06/17 05/16/23 [Symbicort 160-4.5 Mcg Inhaler] Montelukast [Singulair] 10 mg PO HS 04/06/17 05/16/23 Albuterol Inhaler [Ventolin Hfa 2 puff INHALATION RT-Q4H PRN 04/20/17 05/16/23 Inhaler] Potassium Chloride [Klor-Con 10 ER] 10 meq PO HS 04/20/17 05/16/23 Tiotropium [place] [Spiriva] 18 mcg INHALATION RT-DAILY 04/20/17 05/16/23 allopurinoL [Zyloprim] 200 mg PO DAILY 04/20/17 05/16/23 Potassium Chloride [K-Tab ER] 20 meq PO DAILY 02/15/18 05/16/23 Furosemide [Lasix] 20 mg PO DAILY 04/13/20 05/16/23 Ipratropium-Albuterol Nebulize 3 ml INHALATION RT-QID 04/13/20 05/16/23 [Duoneb 0.5 mg-3 mg/3 ml Soln] Spironolactone [Aldactone] 25 mg PO DAILY 04/13/20 05/16/23 guaiFENesin [Mucinex] 1,200 mg PO DAILY PRN 04/13/20 05/16/23 ALPRAZolam [Xanax] 0.25 mg PO DAILY PRN 11/25/22 05/16/23 predniSONE 10 mg PO DAILY 11/25/22 05/16/23 Calcium Citrate/Vitamin D3 2 each PO DAILY 05/16/23 05/16/23 [Citracal + D Maximum Caplet] Previous Rx's Medication Instructions Recorded Amoxic-Pot Clav 875-125Mg 1 tab PO BID 7 Days #14 tab 12/24/24 [Augmentin 875-125] predniSONE [Deltasone] 40 mg PO DAILY 5 Days #10 tab 12/24/24 Allergies Allergy/AdvReac Type Severity Reaction Status Date / Time sulfamethoxazole Allergy Rash/Hives Verified 12/24/24 14:34 [From Bactrim] trimethoprim [From Bactrim] Allergy Rash/Hives Verified 12/24/24 14:34 Review of Systems ROS Other: All systems not noted in ROS Statement are negative. <Natalie Taylor - Last Filed: 12/24/24 15:11> ROS Other: All systems not noted in ROS Statement are negative. <Tom Magana - Last Filed: 12/24/24 23:52> ROS Statement: Those systems with pertinent positive or pertinent negative responses have been documented in the HPI. Review of Systems: CONST: Denies fever EYES: Denies blurry vision ENT: Denies nasal congestion C/V: Denies Chest pain RESP: Endorses cough, shortness of breath GI: Denies abdominal pain : Denies dysuria SKIN: Denies rash. MSK: Denies joint pain. NEURO: Denies headache (Tom Magana) Past Medical History Past Medical History: Asthma, COPD, Hypertension, Sleep Apnea/CPAP/BIPAP Additional Past Medical History / Comment(s): thin skin and bruises easily due to prednisone., hx gout., uses oxygen at 3 L, states edema legs-wears compression stockings, states ulcer on right lower leg that is healing. History of Any Multi-Drug Resistant Organisms: None Reported Past Surgical History: No Surgical Hx Reported Additional Past Surgical History / Comment(s): colonoscopy Past Anesthesia/Blood Transfusion Reactions: No Reported Reaction Additional Past Anesthesia/Blood Transfusion Reaction / Comment(s): . Past Psychological History: Anxiety Smoking Status: Former smoker Past Alcohol Use History: Daily Past Drug Use History: None Reported - Past Family History Mother Family Medical History: No Reported History <Natalie Taylor - Last Filed: 12/24/24 15:11> General Exam Limitations: no limitations <Natalie Taylor - Last Filed: 12/24/24 15:11> <Tom Magana - Last Filed: 12/24/24 23:52> - General Exam Comments Initial Comments: Visual Physical Exam Vital signs reviewed General: Well-appearing, nontoxic, no acute distress. Head: Normocephalic, atraumatic Eyes: PERRLA, EOMI ENT: Airway patent Chest: Nonlabored breathing Skin: No visual rash, normal skin tone Neuro: Alert and oriented 3 Musculoskeletal: No gross abnormalities (Natalie Taylor) General: Appears in no acute distress. HEAD: Normal with no signs of head trauma. EYES: PERRLA, EOMI, conjunctiva normal, no discharge. ENT: Hearing grossly intact, normal oropharynx. RESPIRATORY: Mild bilateral end expiratory wheezing. No significant hypoxia at rest on his baseline 3 L nasal cannula oxygen. Significant increased work of breathing. C/V: Regular rate and rhythm. S1 and S2 auscultated, symmetrical lower extremity pitting edema., peripheral pulses 2+ and intact throughout ABD: Abd is soft, nontender, nondistended EXT: Normal range of motion, no obvious deformity SKIN: No rashes or lesions observed on exposed skin. NEURO: Alert and oriented x 4. (Tom Magana) Course Vital Signs 12/24/24 12/24/24 12/24/24 14:29 17:45 17:58 Temperature 98.1 F Pulse Rate 89 74 72 Respiratory 20 Rate Blood Pressure 157/88 O2 Sat by Pulse 95 Oximetry 12/24/24 18:22 Temperature 98.0 F Pulse Rate 70 Respiratory 22 Rate Blood Pressure 147/78 O2 Sat by Pulse 97 Oximetry Medical Decision Making <Natalie Taylor - Last Filed: 12/24/24 15:11> - Lab Data Result diagrams: 12/24/24 15:54 12/24/24 15:54 - EKG Data -: EKG Interpreted by Me <Tom Magana - Last Filed: 12/24/24 23:52> - Medical Decision Making I performed the QuickNote portion of this chart. Signed Natalie Taylor PA-C. (Natalie Taylor) Was pt. sent in by a medical professional or institution ([facility], POWERHOUSE ATTENDANT, urgent care, hospital, or prison...) When possible be specific @ -No Did you speak to anyone other than the patient for history (EMS, parent, family, police, friend...)? What history was obtained from this source @ -No Did you review nursing and triage notes (agree or disagree)? Why? @ -I reviewed and agree with nursing and triage notes Were old charts reviewed (outside hosp., previous admission, EMS record, old EKG, old radiological studies, urgent care reports/EKG's, prison records)? Report findings @ -Old charts reviewed including prior EKGs. Today shows no obvious dynamic changes on EKG. Compared with EKG from November 2022. Differential Diagnosis (chest pain, altered mental status, abdominal pain women, abdominal pain men, vaginal bleeding, weakness, fever, dyspnea, syncope, headache, dizziness, GI bleed, back pain, seizure, CVA, palpatations, mental hea lth, musculoskeletal)? @ -COVID, flu, RSV, pneumonia, COPD. This list is not inclusive. EKG interpreted by me (3pts min.). @ -As above X-rays interpreted by me (1pt min.). @ -Chest x-ray reveals no evidence of pneumonic infiltrate or acute cardiopulmonary process. CT interpreted by me (1pt min.). @ -None done U/S interpreted by me (1pt. min.). @ -None done What testing was considered but not performed or refused? (CT, X-rays, U/S, labs)? Why? @ -None What meds were considered but not given or refused? Why? @ -None Did you discuss the management of the patient with other professionals (professionals i.e. , PA, POWERHOUSE ATTENDANT, lab, RT, psych nurse, manager social work, senior safety management consultant, teacher, lead security officer, case specialist)? Give summary @ -No Was smoking cessation discussed for >3mins.? @ -No Was critical care preformed (if so, how long)? @ -No Were there social determinants of health that impacted care today? How? (Homelessness, low income, unemployed, alcoholism, drug addiction, transportation, low edu. Level, literacy, decrease access to med. care, alf, rehab)? @ -No Was there de-escalation of care discussed even if they declined (Discuss DNR or withdrawal of care, Hospice)? DNR status @ -No What co-morbidities impacted this encounter? (DM, HTN, Smoking, COPD, CAD, Cancer, CVA, ARF, Chemo, Hep., AIDS, mental health diagnosis, sleep apnea, morbid obesity)? @ -COPD, chronic hypoxic respiratory failure Was patient admitted / discharged? Hospital course, mention meds given and route, prescriptions, significant lab abnormalities, going to OR and other pertinent info. @ -Patient presents emergency department for what seems like a upper respiratory infection with COPD exacerbation. Vital signs are within acceptable limits on his baseline 3 L nasal cannula oxygen. We will obtain general workup as ordered and triage as a quick note. Patient will be given breathing treatment, IV steroid. He was in agreement this plan. Vital signs currently within acceptable limits. EKG shows no signs of acute ischemia. Chest x-ray unremarkable. Laboratory studies also returned unremarkable including undetectable troponin, normal BNP. Patient does test positive for RSV. I discussed results with patient. He is feeling improved. We discussed admission versus discharge and he would like to go home. I believe this is reasonable. Vital signs remain within acceptable limits. Patient will be empirically started on antibiotics for acute tracheobronchitis. Given a dose of Rocephin prior to discharge as well as started on Augmentin as he was recently on azithromycin. Patient will also be given a prescription for prednisone. Does not require any breathing treatment refills. He was in agreement this plan. Recommend follow-up with his moulder operator in the next 1 to 3 days. P bernard is at baseline for hypoxic respiratory failure requiring 3 L nasal cannula oxygen at this time. I will provide the patient with a prescription for prednisone, Augmentin. I instructed the patient to follow up with their PCP in the next 1-3 days.. I explained that the patient should return to the emergency department if they experience any worsening symptoms. Strict return precautions were discussed with the patient. The patient expressed understanding of these instructions. I answered all questions that the patient had. The patient was discharged home in good condition with their prescriptions and follow up information. Undiagnosed new problem with uncertain prognosis? @ -No Drug Therapy requiring intensive monitoring for toxicity (Heparin, Nitro, Insulin, Cardizem)? @ -No Were any procedures done? @ -No Diagnosis/symptom? @ -COPD, tracheobronchitis, RSV bronchiolitis, in the setting of chronic hypoxic respiratory failure Acute, or Chronic, or Acute on Chronic? @ -Acute on chronic Uncomplicated (without systemic symptoms) or Complicated (systemic symptoms)? @ -Complicated Side effects of treatment? @ -No Exacerbation, Progression, or Severe Exacerbation? @ -No Poses a threat to life or bodily function? How? (Chest pain, [place], [place], pneumonia, PE, COPD, DKA, ARF, appy, cholecystitis, CVA, Diverticulitis, Homicidal, Suicidal, threat to staff... and all critical care pts) @ -Unlikely at this time (Tom Magana) - Lab Data Lab Results 12/24/24 12/24/24 12/24/24 Range/Units 15:54 15:54 15:54 WBC 10.6 (3.8-10.6) k/uL RBC 4.50 (4.30-5.90) m/uL Hgb 14.4 (13.0-17.5) gm/dL Hct 43.4 (39.0-53.0) % MCV 96.3 (80.0-100.0) fL MCH 32.0 (25.0-35.0) pg MCHC 33.2 (31.0-37.0) g/dL RDW 13.1 (11.5-15.5) % Plt Count 205 (150-450) k/uL MPV 7.2 Neutrophils % 86 % Lymphocytes % 8 % Monocytes % 5 % Eosinophils % 1 % Basophils % 0 % Neutrophils # 9.1 H (1.3-7.7) k/uL Lymphocytes # 0.8 L (1.0-4.8) k/uL Monocytes # 0.5 (0-1.0) k/uL Eosinophils # 0.1 (0-0.7) k/uL Basophils # 0.0 (0-0.2) k/uL PT 11.3 (10.0-12.5) sec INR 1.0 (<1.2) APTT 26.0 (22.0-30.0) sec Sodium 134 L (137-145) mmol/L Potassium 4.2 (3.5-5.1) mmol/L Chloride 99 (98-107) mmol/L Carbon Dioxide 28 (22-30) mmol/L Anion Gap 7 mmol/L BUN 17 (9-20) mg/dL Creatinine 1.22 (0.66-1.25) mg/dL Est GFR (CKD-EPI)AfAm 69 (>60 ml/min/1.73 sqM) Est GFR (CKD-EPI)NonAf 60 (>60 ml/min/1.73 sqM) Glucose 120 H (74-99) mg/dL Plasma Lactic Acid [place] (0.7-2.0) mmol/L Calcium 9.0 (8.4-10.2) mg/dL Magnesium 2.2 (1.6-2.3) mg/dL Total Bilirubin 1.0 (0.2-1.3) mg/dL AST 30 (17-59) U/L ALT 26 (4-49) U/L Alkaline Phosphatase 69 (38-126) U/L Troponin I (0.000-0.034) ng/mL NT-Pro-B Natriuret Pep 148 pg/mL Total Protein 6.7 (6.3-8.2) g/dL Albumin 3.9 (3.5-5.0) g/dL Influenza Type A (PCR) (Not Detectd) Influenza Type B (PCR) (Not Detectd) RSV (PCR) (Not Detectd) SARS-CoV-2 (PCR) (Not Detectd) 12/24/24 12/24/24 12/24/24 Range/Units 15:54 15:54 15:54 WBC (3.8-10.6) k/uL RBC (4.30-5.90) m/uL Hgb (13.0-17.5) gm/dL Hct (39.0-53.0) % MCV (80.0-100.0) fL MCH (25.0-35.0) pg MCHC (31.0-37.0) g/dL RDW (11.5-15.5) % Plt Count (150-450) k/uL MPV Neutrophils % % Lymphocytes % % Monocytes % % Eosinophils % % Basophils % % Neutrophils # (1.3-7.7) k/uL Lymphocytes # (1.0-4.8) k/uL Monocytes # (0-1.0) k/uL Eosinophils # (0-0.7) k/uL Basophils # (0-0.2) k/uL PT (10.0-12.5) sec INR (<1.2) APTT (22.0-30.0) sec Sodium (137-145) mmol/L Potassium (3.5-5.1) mmol/L Chloride (98-107) mmol/L Carbon Dioxide (22-30) mmol/L Anion Gap mmol/L BUN (9-20) mg/dL Creatinine (0.66-1.25) mg/dL Est GFR (CKD-EPI)AfAm (>60 ml/min/1.73 sqM) Est GFR (CKD-EPI)NonAf (>60 ml/min/1.73 sqM) Glucose (74-99) mg/dL Plasma Lactic Acid [place] 1.6 (0.7-2.0) mmol/L Calcium (8.4-10.2) mg/dL Magnesium (1.6-2.3) mg/dL Total Bilirubin (0.2-1.3) mg/dL AST (17-59) U/L ALT (4-49) U/L Alkaline Phosphatase (38-126) U/L Troponin I <0.012 (0.000-0.034) ng/mL NT-Pro-B Natriuret Pep pg/mL Total Protein (6.3-8.2) g/dL Albumin (3.5-5.0) g/dL Influenza Type A (PCR) Not Detected (Not Detectd) Influenza Type B (PCR) Not Detected (Not Detectd) RSV (PCR) Detected A (Not Detectd) SARS-CoV-2 (PCR) Not Detected (Not Detectd) - EKG Data EKG Comments: 12-lead Electrocardiogram Interpretation Note EKG was reviewed and interpreted by myself. 12-lead ECG performed at 1637 is interpreted by me as revealing normal sinus rhythm at a rate of 77 beats per minute. [place] is normal. RI interval is 156 ms, QRS durations 95 ms, QTc is 413 ms.. There were no ST or T wave abnormalities to suggest myocardial ischemia or injury. R wave progression across the precordium was satisfactory. By my interpretation this EKG is non-diagnostic for acute ischemia. (Tom Magana) Disposition <Natalie Taylor - Last Filed: 12/24/24 15:11> Is patient prescribed a controlled substance at d/c from ED?: No Time of Disposition: 18:00 <Tom Magana - Last Filed: 12/24/24 23:52> Clinical Impression: COPD (chronic obstructive pulmonary disease), RSV bronchiolitis, Tracheobronchitis Disposition: HOME SELF-CARE Condition: Good Instructions (If sedation given, give patient instructions): Respiratory Syncytial Virus (ED), Acute Bronchitis (ED), COPD (Chronic Obstructive Pulmonary Disease) (ED) Additional Instructions: Your diagnosis today is COPD, RSV bronchiolitis, tracheobronchitis. Complete course of prednisone, 40 mg daily for 5 days. Also complete course of empiric antibiotic Augmentin, taking 1 tab twice a day for 7 days for your t racheobronchitis. Follow-up with your moulder operator. Return to the ER if any worsening symptoms. Follow-up with moulder operator the next 1 to 3 days. Prescriptions: Amoxic-Pot Clav 875-125Mg [Augmentin 875-125] 1 tab PO BID 7 Days #14 tab predniSONE [Deltasone] 40 mg PO DAILY 5 Days #10 tab Referrals: Darrius Elizabeth MD [Primary Care Provider] - 1-2 days
[2024-12-24 16:05] LABS: Basophils % (A) 0 %; Eosinophils # (A) 0.1 k/uL (0-0.7); Eosinophils % (A) 1 %; HCT 43.4 % (39.0-53.0); HGB 14.4 gm/dL (13.0-17.5); Lymphocytes # (A) 0.8 k/uL (1.0-4.8); Lymphocytes % (A) 8 %; MCHC 33.2 g/dL (31.0-37.0); MCV 96.3 fL (80.0-100.0); Mean Platelet Volume 7.2; Monocytes # (A) 0.5 k/uL (0-1.0); Monocytes % (A) 5 %; Neutrophils # (A) 9.1 k/uL (1.3-7.7); Neutrophils % (A) 86 %; Platelet Count 205 k/uL (150-450); RDW 13.1 % (11.5-15.5); WBC 10.6 k/uL (3.8-10.6)
[2024-12-24 16:16] LABS: Prothrombin Time 11.3 sec (10.0-12.5)
[2024-12-24 16:43] LABS: ALT 26 U/L (4-49); AST 30 U/L (17-59); African American GFR (CKD) 69 (>60 ml/min/1.73 sqM); Albumin 3.9 g/dL (3.5-5.0); Alkaline Phosphatase 69 U/L (38-126); Anion Gap 7 mmol/L; Blood Urea Nitrogen 17 mg/dL (9-20); Carbon Dioxide 28 mmol/L (22-30); Chloride 99 mmol/L (98-107); Glucose 120 mg/dL (74-99); Magnesium 2.2 mg/dL (1.6-2.3); Non-African American GFR(CKD) 60 (>60 ml/min/1.73 sqM); Potassium 4.2 mmol/L (3.5-5.1); Sodium 134 mmol/L (137-145); Total Protein 6.7 g/dL (6.3-8.2)
[2024-12-24] MEDS: methylPREDNISolone SOD SUCCI 125 MG/2 ML VIAL IV STA (16:46)
[2024-12-24 16:51] LABS: NT-Pro-B-Type Natriuretic Pept 148 pg/mL
[2024-12-24 17:01] LABS: Influenza A Not Detected (Not Detectd); Influenza B Not Detected (Not Detectd); RSV Detected (Not Detectd)
--- NOTE | 2024-12-24 17:06 | XR ---
EXAMINATION TYPE: XR chest 2V DATE OF EXAM: 12/24/2024 CLINICAL INDICATION: Male, 69 years old with history of difficulty breathing, TECHNIQUE: Frontal and lateral views of the chest are obtained. COMPARISON: Chest CT December 13, 2022 FINDINGS: There is chronic emphysematous change without suspicious new focal air space opacity, pleu ral effusion, or pneumothorax seen. The cardiac silhouette size remains within normal limits. The osseous structures are intact. IMPRESSION: Chronic emphysematous change without acute pulmonary process. [facility], , 12/24/2024 5:03 PM
[2024-12-24] MEDS: IPRATROPIUM-ALBUTEROL 3 ML NEB INHALATION STA (17:45)
[2024-12-24] MEDS: AMOXIC-POT CLAV 875-125MG 1 EACH TAB PO STA (18:12)
[2024-12-24] MEDS: cefTRIAXone IN SWFI 1,000 MG/10 ML SYRINGE IVP STA (18:12)
[2024-12-24 18:24] VITALS: BP 147/78; PULSE 70; RESP 22; TEMP 98
== END 2024-12-24 18:24 | disposition home or self-care (01) ==
LOC: EC 14:22
DX: J21.0 Acute bronchiolitis due to respiratory syncytial virus (principal); J42 Unspecified chronic bronchitis; J96.11 Chronic respiratory failure with hypoxia; Z88.2 Allergy status to sulfonamides; Z88.1 Allergy status to other antibiotic agents; Z87.891 Personal history of nicotine dependence
CPT/HCPCS: 36415; 94640; 93005; 83880; 80053; 83605; 83735; 84484; 85025; 85610; 85730; 87636; 71046; 99285; 96374; 96375; J0696; J2919